=== PATIENT | male | born 1960 | race Caucasian/White ===

== ENCOUNTER → 2016-08-07 | Outpatient (CLI) | payer OTHER, BC ==
[~2016-08-07] MED LIST: HYDR-3419 PO; KETO10TA PO; MELO15TA4 PO; OXYC-57 PO
--- NOTE | 2016-08-07 08:12 | DIAGNOSTIC IMAGING REPORT ---
MRI left shoulder LEFT UPPER EXT JOINT WITHOUT CLINICAL HISTORY: ROTATOR CUFF TEAR OF LEFT SHOULDER TECHNIQUE: Multiaxial MRI acquisition COMPARISON STUDY: None FINDINGS: Hill-Sachs type deformity posterior lateral aspect humeral head. Degenerative change glenohumeral joint. Full-thickness tear supraspinatus musculotendinous junction with moderate musculotendinous retraction. Hypertrophic change acromioclavicular joint creating a mild degree of impingement. Subscapularis tendon appears to show moderate thinning but appears to be intact. The infraspinatus tendon is intact. Structures the glenoid labrum show evidence for degenerative substance change of the anterior and to lesser extent posterior labrum. There has-been a tear of the anterior superior margin of the labrum. The subscapularis and infraspinatus components of the rotator cuff appear to be intact. IMPRESSION: 1. Tear supraspinatus tendon. 2. Hill-Sachs type deformity posterior lateral aspect humeral head. 3. Focal tear anterior superior glenoid labrum Electronically signed by: Dakota Friend M.D. 08/07/2016 8:11 AM Dictated Date/Time: 08/07/2016 7:47 AM
== END | disposition home or self-care (01) ==
PROVIDERS: ATTEND Orthopaedic Surgery
DX: M75.102 Unspecified rotator cuff tear or rupture of left shoulder, not specified as traumatic (principal)

== ENCOUNTER → 2016-09-04 | Outpatient (CLI) | payer BC, OTHER ==
[2016-09-04 19:01] LABS: ALT/SGPT 75 U/L (12-78); AST/SGOT 33 U/L (15-37); BLOOD UREA NITROGEN 13 mg/dl (7-18); BUN/CREATININE RATIO 11.8 (10-20); CALCIUM 8.9 mg/dl (8.5-10.1); CARBON DIOXIDE 26 mmol/L (21-32); CHLORIDE 108 mmol/L (98-107); GLUCOSE 88 mg/dl (70-99); POTASSIUM 3.9 mmol/L (3.5-5.1); SODIUM 142 mmol/L (136-145)
[2016-09-04 19:03] LABS: ALKALINE PHOSPHATASE 129 U/L (45-117)
== END | disposition home or self-care (01) ==
LOC: C.LABBFT 11:20
PROVIDERS: ATTEND Internal Medicine
DX: K76.0 Fatty (change of) liver, not elsewhere classified (principal)

== ENCOUNTER → 2016-09-07 | Day surgery (SDC) | payer OTHER, BC ==
[2016-08-24 14:45] VITALS: Ht 185.4 cm; Wt 109.1 kg
[2016-08-24 15:48] LABS: BASO % 1.3 %; BASO ABS # 0.06 K/uL (0-0.2); COMPLETE YES; EOS % 3.8 %; HEMATOCRIT 47.6 % (42-52); IG% 0.8 %; LYMPH % 30.4 %; LYMPH ABS # 1.44 K/uL (1.2-3.4); MEAN CELL VOLUME 84.4 fL (80-100); MEAN CORPUSCULAR HEMOGLOBIN 29.4 pg (25-34); MEAN CORPUSCULAR HGB CONC 34.9 g/dl (32-36); MEAN PLATELET VOLUME 10.2 fL (7.4-10.4); NEUT % 45.7 %; PLATELET COUNT 206 K/uL (130-400); RED BLOOD COUNT 5.64 M/uL (4.7-6.1); WHITE BLOOD COUNT 4.73 K/uL (4.8-10.8)
[~2016-09-07] VITALS: Ht 185.4 cm; Wt 109.1 kg
[~2016-09-07] MED LIST changes: +ATROPINE SULFATE 0.1 MG/ML 5ML SYR IV PRN; +BUPIVACAINE/EPINEPHRINE 0.25% 1:200,000 30 ML VIAL ONE; +CEFAZOLIN 2000 MG/60 ML D5W IV SCH; +DEXAMETHASONE SOD INJ 4 MG/ML VIAL ONE; +EpHEDrine SULFATE INJ 50 MG/ML AMP IV PRN; +EpINEphrine INJ 1MG/ML AMP 1 MG/ML AMP ONE; +FENTANYL CITRATE INJ 50 MCG/1 ML 2 ML VIAL IV PRN; +FENTANYL CITRATE INJ 50 MCG/1 ML 2 ML VIAL ONE; +FLUMAZENIL 0.1 MG/1 ML 10 ML VIAL IV PRN; +HYDROmorphone INJ 2 MG/ML SYR/VIAL IV PRN; +LABETALOL HCL IV 5 MG/ML 20ML IV ONE; +LABETALOL HCL IV 5 MG/ML 20ML IV PRN; +LACTATED RINGER'S 1000ML 1,000 ML IV SCH; +LIDOCAINE HCL 2% 2 ML VIAL (20MG/ML) ONE; +MEPERIDINE HCL 25 MG/ML CARP IV PRN; +MIDAZOLAM HCL 1 MG/ML 2ML VIAL ONE; +NALOXONE HCL 0.4 MG/1 ML VIAL/CARP IV PRN; +ONDANSETRON INJ 2 MG/ML 2 ML VIAL IV PRN; +ONDANSETRON INJ 2 MG/ML 2 ML VIAL ONE; +OXYCODONE/ACETAMINOPHEN 5-325 TAB PO PRN; +PHENYLEPHRINE 100MCG/ML 5ML SYR IV PRN; +PROPOFOL IV EMULSION 10 MG/ML 20 ML VIAL IV ONE; +ROPIVACAINE 0.5% 5 MG/ML 30 ML VIAL ONE; +SODIUM CHLORIDE 0.9% 1000ML 1,000 ML IV SCH
--- NOTE | 2016-09-07 07:03 | History & Physical Bridge - [place] ---
H&P Re-Evaluation Bridge Note: I have examined the patient, reviewed the History & Physical and in the interval since the performance of the History & Physical I have noted the following changes of clinical significance: No changes noted
--- NOTE | 2016-09-07 10:04 | Discharge Instructions-SurgCtr ---
Discharge Instructions Date of Service Sep 07, 2016. Visit Reason for Visit: Left Shoulder Full Thickness Rotator Cuff Tear Discharge Discharge Diagnosis / Problem: SAME ABOVE Discharge Goals Goal(s): Decrease discomfort, Improve function Activity Recommendations Activity Limitations: as noted below Lifting Limitations: until after follow-up appointment Exercise/Sports Limitations: until after follow-up appointment Shower/Bathe: may shower/bathe in 3 days Anesthesia . Post Anesthesia Instructions: If you have had General Anesthesia or IV Sedation: * Do not drive today. * Resume driving when surgeon permits. * Do not make important decisions or sign legal documents today. * Call surgeon for: 1. Temperature elevations greater than 101 degrees F. 2. Uncontrollable pain. 3. Excessive bleeding. 4. Persistent nausea and vomiting. 5. Medication intolerance (nausea, vomiting or rash). * For nausea and vomiting use only clear liquids such as: tea, soda, bouillon until nausea subsides, then gradually increase diet as tolerated. * If you have any concerns or questions, call your surgeon's office. If physician is unavailable and it is an emergency, call 911 or go to the nearest emergency room. . Instructions / Follow-Up Instructions / Follow-Up MEDICATIONS: * Resume previous medications unless instructed otherwise by your surgeon. * Always take pain medication on a full stomach or with food to avoid upset stomach. * Do not drink alcohol or drive while taking narcotics. * Ibuprofen or Tylenol may be taken if narcotic not needed. SPECIAL CARE INSTRUCTIONS: __ None _X_ Keep extremity elevated and iced x 48 hours; apply ice 20-30 minutes 8-10 times/day. May remove at night. __ Sling __24 hrs/day __ Remove at night _X_ Shoulder Immobilizer (MAY REMOVE AFTER 48 HOURS ONLY FOR THERAPY AND TO SHOWER) _X_ 24 hrs/day __ Remove at night _X_ Dressing __ Maintain until seen in office, may shower with plastic over site _X_ Remove dressings in 24-48 hours and then may shower _X_ Cover incisions with band-aids after showering __ Do not remove steri-strips Call physician if chills or temperature rises above 102 degrees or pain unrelieved by prescribed pain medications at . . Diet Recommendations Home Diet: no limitations Fluid Restriction: None Procedures Procedures Performed: Left Shoulder Arthroscopy, Medium Rotator Cuff Repair, Arthroscopic Biceps Tenodesis, Acromioplasty Pending Studies Studies pending at discharge: no Work Instructions Return To Work: after follow-up Lifting Limitations: NO LIFTING WITH LEFT ARM Medical Emergencies . Who to Call and When: Medical Emergencies: If at any time you feel your situation is an emergency, please call 911 immediately. . Non-Emergent Contact Non-Emergency issues call your: Primary Care Provider Call Non-Emergent contact if: you have a fever, temperature is above 101.5 . . "Provider Documentation" section prepared by Reginaldo Bello.
--- NOTE | 2016-09-07 10:21 | Anesthesia Progress Nt - [facility] ---
Anesthesia Post Op Note Date & Time Sep 07, 2016 at 10:21 Vital Signs Pain Intensity: 0 Vital Signs Past 12 Hours Date Time Temp Pulse Resp B/P Pulse Ox O2 Delivery O2 Flow Rate FiO2 09/07/16 09:43 36.5 71 16 97/63 93 Mask 6 09/07/16 07:52 88 22 95 09/07/16 07:52 88 09/07/16 07:51 172/123 09/07/16 07:48 91 09/07/16 07:48 89 29 95 09/07/16 07:47 85 32 95 09/07/16 07:47 85 09/07/16 07:46 160/112 09/07/16 07:42 87 09/07/16 07:42 87 22 96 09/07/16 07:41 167/101 09/07/16 07:37 86 24 96 09/07/16 07:37 87 09/07/16 07:36 178/116 09/07/16 07:32 88 09/07/16 07:32 88 29 97 09/07/16 07:31 172/110 09/07/16 07:29 87 09/07/16 07:29 88 22 96 09/07/16 07:26 158/110 09/07/16 07:24 88 09/07/16 07:24 88 20 95 09/07/16 07:21 162/106 09/07/16 07:19 85 21 95 09/07/16 07:19 86 09/07/16 07:17 161/120 09/07/16 07:14 81 09/07/16 07:14 81 20 98 09/07/16 07:11 155/111 09/07/16 07:09 0 09/07/16 07:02 153/102 09/07/16 06:32 37.0 88 20 156/101 94 Room Air 153/102 Notes Mental Status: alert / awake / arousable, participated in evaluation Pt Amnestic to Procedure: Yes Nausea / Vomiting: adequately controlled Pain: adequately controlled Airway Patency, RR, SpO2: stable & adequate BP & HR: stable & adequate Hydration State: stable & adequate Anesthetic Complications: no major complications apparent
[2016-09-07 10:45] VITALS: TEMP 36.5
[2016-09-07 11:07] VITALS: BP 156/96; PULSE 81; O2SAT 95
--- NOTE | 2016-09-07 12:26 | [facility] Post Operative Brief Note ---
Immediate Operative Summary Operative Date Sep 07, 2016. Pre-Operative Diagnosis Left Shoulder Full Thickness Rotator Cuff Tear Post-Operative Diagnosis Same Procedure(s) Performed Left Shoulder Arthroscopy, Medium Rotator Cuff Repair, Arthroscopic Biceps Tenodesis, Acromioplasty Surgeon Dr. Pike [employer] Switch Technician Surgeon(s) Juan Ramon Bello PA-C Estimated Blood Loss 5 ml Findings as above Specimens None Complication(s) None Disposition Recovery Room / PACU
--- NOTE | 2016-09-07 12:33 | OPERATIVE REPORT ---
DATE OF OPERATION: 09/07/2016 PREOPERATIVE DIAGNOSIS: Traumatic medium-sized rotator cuff tear of the left shoulder. POSTOPERATIVE DIAGNOSIS: Same. PROCEDURES: Left shoulder diagnostic arthroscopy with extensive debridement, acromioplasty, traumatic medium-sized rotator cuff repair and arthroscopic biceps tenodesis. SURGEON: Dr. Elliott Pike. APPRAISER IRRIGATION TAX: Abelardo Bello PA-C, whose assistance was necessary for positioning the arm and helping with instrumentation. ANESTHESIA: General with a left interscalene nerve block. COMPLICATIONS: None. CONDITION: Stable to PACU. INDICATIONS: Basilio is a pleasant 56-year-old male who fell at work several months ago. He had significant pain and weakness of his left shoulder. MRI and clinical examination were diagnostic for acute traumatic rotator cuff tear. After failing conservative treatment, he elected to undergo arthroscopy. DESCRIPTION OF PROCEDURE: On 09/07/2014, he arrived at [facility] for the above procedure. He was seen in the preoperative holding and the operative extremity was identified and signed. He was given the previous antibiotic and a left interscalene nerve block. He was taken back to the operating room, laid on the table in supine position and put under general anesthesia. He was then put into the beachchair position. The left shoulder was prepped and draped in sterile fashion. Time-out was done and the patient and operative extremity was properly identified. A scope was introduced into the posterior portal. Diagnostic arthroscopy showed no cartilage damage to the humeral head or the glenoid. There was some fraying of the anterior and superior labrum. The biceps tendon was intact, but it was frayed on the anterior aspect. The subscapularis was intact. There was a tear involving the entire supraspinatus that extended up the rotator interval. The infraspinatus and teres minor were intact. An anterior portal was made. A shaver was used to start debridement of the intraarticular structures and the biceps tendon was arthroscopically tenotomized. The scope was then put into the subacromial space. A lateral portal was made. A shaver was used to do a complete subacromial and subdeltoid bursectomy. An ablator was used to tease the coracoacromial ligament off the undersurface of the acromion and a 5-0 antolin was used to complete an acromioplasty of a Bigliani type 2 acromion. A shaver was used to remove any excess debris and attention was turned to the rotator cuff. An additional anterolateral portal was made and Arlin cannulas were placed in each of the lateral portals. The tuberosity was prepared with a ring curette and a microfracture. The rotator cuff was then fixed with an Arthrex SpeedBridge configuration using 4.75 mm BioComposite SwiveLock suture anchors and FiberTape. This gave a very nice fixation. An additional FiberLink was placed anteriorly at the anterior corner of the supraspinatus. The FiberLink was also placed around the biceps tendon. The sutures were then brought down to a SwiveLock suture anchor, placed in the bicipital groove. This gave an arthroscopic biceps tenodesis as well as a nice anchor point for the anterior edge of the supraspinatus. Multiple pictures were taken. The scope was placed back into the glenohumeral joint and the articular margin of the rotator cuff had been restored. Pictures were taken. Arthroscopic instruments were removed from the shoulder. Portal sites were closed with 3-0 nylon. He was then placed in a soft dressing and an abduction arm sling. He was then extubated, transferred to a litter and taken to the postanesthesia care unit in stable condition. He tolerated the procedure well. I attest to the content of the Intraoperative Record and any orders documented therein. Any exceptio ns are noted below.
== END | disposition home or self-care (01) ==
LOC: X.SURG 06:23
PROVIDERS: ATTEND Orthopaedic Surgery
DX: S46.012A Strain of muscle(s) and tendon(s) of the rotator cuff of left shoulder, initial encounter (principal); W19.XXXA Unspecified fall, initial encounter; Y99.0 Civilian activity done for income or pay; Z90.49 Acquired absence of other specified parts of digestive tract

== ENCOUNTER 2022-09-08 13:33 | Observation (INO) ==
--- NOTE | 2022-09-08 14:17 | CT Scan Report ---
CT head/brain wo con CLINICAL HISTORY: 62 years-old Male with Neuro deficit, acute, stroke suspected. Acute stroke like s [place] TECHNIQUE: Multiple axial CT images of the head were obtained without contrast. A dose lowering tech nique was utilized adhering to the principles of ALARA. CT DOSE: 614.27 mGy.cm COMPARISON: None. FINDINGS: No acute intracranial hemorrhage, midline shift, intracranial mass, hydrocephalus, territorial ischem ia or abnormal extra-axial collection. Mild involutional changes with suggestion of mild chronic micr ovascular ischemic disease. Senescent calcifications of the basal ganglia. The calvarium is intact. The paranasal sinuses, mastoid air cells, and middle ear cavities are clear . IMPRESSION: No acute intracranial abnormality identified. ACT 112: Negative or not required by law. The above report was generated using voice recognition software. It may contain grammatical, syntax o r spelling errors. Electronically signed by: Wallace Rayo M.D. 09/08/2022 2:16 PM
[2022-09-08 14:32] LABS: Hematocrit (blood only) 50.6 % (42.0-52.0); Hemoglobin 16.9 g/dl (14.0-18.0); Mean Corpuscular Hemoglobin 29.1 pg (25.0-34.0); Mean Corpuscular Hgb Conc 33.4 g/dL (32.0-36.0); Mean Corpuscular Volume 87.1 fL (80.0-100.0); Mean Platelet Volume 9.5 fL (9.4-12.4); Platelet Count 213 K/uL (130-400); RDW Coefficient of Variation 13.5 % (11.5-14.5); RDW Standard Deviation 42.6 fL (36.4-46.3); Red Blood Count 5.81 M/uL (4.70-6.10); White Blood Count 4.52 K/ul (4.8-10.8)
[2022-09-08 14:57] LABS: Partial Thromboplastin Time 27.6 Seconds (21.0-31.0); Prothrombin Time 10.7 Seconds (9.0-12.0)
[2022-09-08 14:59] LABS: Alanine Aminotransferase 24 U/L (7-52); Albumin Globulin Ratio 1.4 (0.9-2); Albumin Level 4.9 gm/dl (3.4-5.0); Alkaline Phosphatase 114 U/L (34-104); Anion Gap 5 (3-11); Aspartate Aminotransferase 26 U/L (13-39); Bilirubin,Total 0.8 mg/dl (0.2-1.0); Blood Urea Nitrogen 17 mg/dl (6-23); Calcium 9.9 mg/dl (8.5-10.1); Carbon Dioxide 29 mmol/L (21-32); Chloride 105 mmol/L (98-107); Creatinine Clr Calc Pharmacy 83.6 ml/min; Est GFR (African American) 79.7 ml/min; Est GFR (Non-African American) 68.8 ml/min; Globulin 3.4 gm/dl (2.5-4.0); Glucose 96 mg/dl (70-99(Fasting)); Magnesium 2.3 mg/dl (1.7-2.4); Potassium 4.3 mmol/L (3.5-5.1); Sodium 139 mmol/L (136-145); Total Protein 8.3 gm/dl (6.0-8.3)
[2022-09-08] MEDS ORDERED: LABETALOL HCL IV 5 MG/ML 20ML IV STA ×2 (16:20→18:51)
[2022-09-08] MEDS ORDERED: LOSARTAN POTASSIUM 50 MG TAB PO STA (16:22)
--- NOTE | 2022-09-08 16:32 | Emergency Department Note ---
Impression & Plan Visual disturbance, Hypertension, Stroke-like symptoms ED Provider Note NAME: LU BENNETT AGE: 62 SEX: M : 1960 ARRIVES VIA: Walk-In INFORMANT: [Patient] ED PROVIDER(S): [Nishant Agosto MD] CHIEF COMPLAINT: Lost vision HISTORY OF PRESENT ILLNESS: The patient is a 62-year-old male states that 4 hours ago, his left eye vision turned yellow, pale, saunders and then black. He could not see anything for about 1 minute. His vision then returned. He had a very mild headache in the area of the left eye, no vomiting or nausea. No one-sided weakness, no chest pain or shortness of breath. Lately, the patient's blood pressure has been higher. He is on 2 different medications for blood pressure. He was referred to the ER by his doctors office for the possibility of a small stroke. PMHx/PSHx: See Below SOCIAL HISTORY: See Below. PHYSICAL EXAM: GENERAL: Patient is in no acute distress. HEENT: No acute trauma, normocephalic atraumatic, mucous membranes moist, no nasal congestion. Pupils equal and reactive to light. NECK: No stridor, no adenopathy, no meningismus, trachea is midline. LUNGS: Clear to auscultation bilaterally, no wheeze, no rhonchi, breath sounds equal. HEART: Without murmurs gallops or rubs, regular rate and rhythm. ABDOMEN: Soft, nontender, bowel sounds positive, no peritonitis. EXTREMITIES: No cyanosis or edema, full range of motion of all the joints without pain or difficulty, no signs for acute trauma. NEUROLOGIC: Oriented x 3, no acute motor or sensory deficits, no focal weakness. Excellent historian, no extremity drift or cerebellar dysfunction. No facial droop or speech slur. SKIN: No rash, no jaundice, no diaphoresis. DIFFERENTIAL DIAGNOSIS: Uncontrolled hypertension, stroke, retinal detachment, electrolyte imbalance, renal failure, intracranial bleeding, among others. EMERGENCY DEPARTMENT COURSE/PROCEDURES: Prior/Outside records reviewed: None. ECG per my interpretation: Indication was possible stroke. The ECG shows a sinus rhythm with a PAC. The rate is 79. There is a potential old septal infarct. There is no ST elevation, no PVCs. The QTc is 421. Continuous Cardiac Monitoring per my interpretation: An order was placed for continuous cardiac monitoring. The monitor shows a rate of 72 with normal sinus rhythm. Critical Care Note: I have personally spent 41 minutes of critical care time in the direct management of this patient. This includes bedside care, interpretation of diagnostic studies, and testing, discussion with consultants, patient, and family members, and other required patient management activities. This 41 minutes is in excess of all separately billable procedures. MEDICAL DECISION MAKING: There is no leukocytosis or concerning anemia. There is a normal platelet count. No coagulopathy. No renal failure or significant electrolyte abnormality, no concerning liver enzyme elevation. COVID test returned negative. ECG showed a normal sinus rhythm, no obvious ischemia. Brain MRI did not show any acute stroke. Chest film per my review did not show mediastinal widening, pneumonia or pneumothorax. Brain CT showed no acute bleed or mass effect. On exam, patient's vision had returned to normal, there were no focal neurologic findings. He was hypertensive. Patient was given 50 mg of oral losartan. He received 10 mg of IV labetalol and then a second dose of 10 mg of IV labetalol. He was given oral aspirin. The patient was reassured by his negative imaging. I did speak with ophthalmology, Dr. Gamble. Basically, the patient should be treated as if this were a TIA. I was able to have our techs perform a retinal scan. This image has been sent to the [facility] for ophthalmology to review. I spoke with the patient, I did speak with case management as well as the on- call hospitalist--given the need for a stroke work-up, hospitalization is indicated. The patient's blood pressure has improved, he is currently resting comfortably and is without complaints. DISPOSITION: Patient presentation and findings warrant a hospital stay. Past Med/Surg History Medical History Asthma exercise induced--no inhalers Degeneration, intervertebral disc, thoracic Fatty liver Hearing loss in right ear History of colon polyps Hypertension Mass of right forearm Ocular migraine hx Palpitations holter monitor study done within last year. ordered by pcp ([facility]). no community mental health social worker. Plantar warts Sebaceous cyst of left axilla Surgical History H/O excision of mass (07/18/22) Left Axilla Soft Tissue Mass Excision and Rigth Forearm Soft Tissue Mass Excision(Bilateral) - Gerardo Rowe, DO, FACS History of appendectomy History of carpal tunnel release of both wrists History of colonoscopy History of repair of left rotator cuff History of tonsillectomy History of tooth extraction Family History (Updated 09/08/22 @ 22:06 by Apolinar Velasquez MD) Sister Family history of diabetes mellitus 2 Mother Family hx of colon cancer Hypertension Atrial fibrillation Aunt Breast cancer Other No family history of adverse response to anesthesia Denies family history of Ovarian cancer Prostate cancer Myocardial infarction Colorectal cancer Social History Smoking Status: Never smoker Tobacco Type: Cigars Cigarettes Per Day: 1-2 x mo; Second Hand Exposure: No; Hx Alcohol Use: Yes Alcohol type: beer and hard liquor Hx Substance Use: No Preferred Language: Burmese Communication Ability: Effective Repossession Agent Required: No Beliefs That Will Affect Care: None marital status: Current Living Situation: Spouse current occupational status: employed How many Children do You have: 2 Feels Safe at Home: Yes caffeine: Yes Dental Care, Regularly: Yes Physical Activity Frequency: Does not Exercise Assistive Devices: Glasses Allergies Allergies Allergy/AdvReac Type Severity Reaction Status Date / Time amoxicillin Allergy Severe Hives Verified 09/08/22 17:53 Penicillins Allergy Severe THROAT Verified 09/08/22 17:53 TIGHTENED, ITCHY HIVES FABRICIO Inhibitors AdvReac Intermediate Cough Verified 09/08/22 17:53 Home Meds Home Medications Medication Instructions Recorded Confirmed losartan 50 mg tablet 50 mg PO QAM 07/11/22 09/08/22 [id number] acid 300 1 tab PO QAM 07/11/22 09/08/22 mcg-lycopene 600 mcg-lutein 300 mcg tablet (Centrum Silver Men) verapamil 240 mg 24 hr 240 mg PO QAM 07/11/22 09/08/22 capsule,extended release Previous Rx's Medication Instructions Recorded sildenafil (pulm.hypertension) 20 See Rx Instructions PO DAILY PRN 06/01/22 mg tablet sexual activity #30 tabs Results & Data (ED) Vital Signs Vital Signs - 24 hr 09/08/22 13:46 09/08/22 15:30 09/08/22 18:02 Temperature 36.6 C Temperature Source Temporal Artery Scan Pulse Rate 83 72 Pulse Rate [Apical] 58 L Pulse Rate from SpO2 Sensor Respiratory Rate 18 20 18 Blood Pressure 213/115 H Blood Pressure [Right Arm] 170/95 H Blood Pressure Mean 147 Blood Pressure Mean [Right Arm] 120 Blood Pressure Position [Right Arm] Sitting Pulse Oximetry 98 98 97 Oxygen Delivery Method Room Air Room Air Room Air Oxygen Flow Rate Sepsis Recent Fever Within 48 Hours No Sepsis New/Unexplained Change in Mental Status No Sepsis Action Taken by Nursing No Action Required 09/08/22 18:06 09/08/22 16:51 09/08/22 16:53 Temperature Temperature Source Pulse Rate 70 70 Pulse Rate [Apical] Pulse Rate from SpO2 Sensor Respiratory Rate 17 18 Blood Pressure 168/114 H 159/109 H Blood Pressure [Right Arm] Blood Pressure Mean 132 125 Blood Pressure Mean [Right Arm] Blood Pressure Position [Right Arm] Pulse Oximetry 97 97 97 Oxygen Delivery Method Room Air Room Air Room Air Oxygen Flow Rate 0 Sepsis Recent Fever Within 48 Hours Sepsis New/Unexplained Change in Mental Status Sepsis Action Taken by Nursing 09/08/22 18:02 09/08/22 18:30 09/08/22 19:07 Temperature Temperature Source Pulse Rate 69 62 68 Pulse Rate [Apical] Pulse Rate from SpO2 Sensor 70 Respiratory Rate 18 18 20 Blood Pressure 170/95 H 155/103 H 167/97 H Blood Pressure [Right Arm] Blood Pressure Mean 120 120 120 Blood Pressure Mean [Right Arm] Blood Pressure Position [Right Arm] Pulse Oximetry 96 98 96 Oxygen Delivery Method Room Air Room Air Room Air Oxygen Flow Rate Sepsis Recent Fever Within 48 Hours Sepsis New/Unexplained Change in Mental Status Sepsis Action Taken by Nursing 09/08/22 19:13 09/08/22 19:30 09/08/22 20:30 Temperature Temperature Source Pulse Rate 73 60 59 L Pulse Rate [Apical] Pulse Rate from SpO2 Sensor 70 Respiratory Rate 18 18 18 Blood Pressure 156/97 H 139/96 138/88 Blood Pressure [Right Arm] Blood Pressure Mean 116 110 104 Blood Pressure Mean [Right Arm] Blood Pressure Position [Right Arm] Pulse Oximetry 96 96 94 Oxygen Delivery Method Room Air Room Air Room Air Oxygen Flow Rate Sepsis Recent Fever Within 48 Hours Sepsis New/Unexplained Change in Mental Status Sepsis Action Taken by Nursing 09/08/22 21:00 09/08/22 21:41 09/08/22 22:30 Temperature Temperature Source Pulse Rate 62 70 64 Pulse Rate [Apical] Pulse Rate from SpO2 Sensor 68 Respiratory Rate 16 19 17 Blood Pressure 145/88 H 139/88 142/85 H Blood Pressure [Right Arm] Blood Pressure Mean 107 105 104 Blood Pressure Mean [Right Arm] Blood Pressure Position [Right Arm] Pulse Oximetry 96 94 94 Oxygen Delivery Method Room Air Room Air Room Air Oxygen Flow Rate Sepsis Recent Fever Within 48 Hours Sepsis New/Unexplained Change in Mental Status Sepsis Action Taken by Longterm Medications Current Medication List: was personally reviewed by me Laboratory Data Attestation: I reviewed the patient's lab results. 09/08/22 14:02 09/08/22 14:02 Lab Results 09/08/22 09/08/22 09/08/22 Range/Units 14:02 14:02 14:02 WBC 4.52 L (4.8-10.8) K/ul RBC 5.81 (4.70-6.10) M/uL Hgb 16.9 (14.0-18.0) g/dl Hct 50.6 (42.0-52.0) % MCV 87.1 (80.0-100.0) fL MCH 29.1 (25.0-34.0) pg MCHC 33.4 (32.0-36.0) g/dL RDW Std Deviation 42.6 (36.4-46.3) fL RDW Coeff of Nayan 13.5 (11.5-14.5) % Plt Count 213 (130-400) K/uL MPV 9.5 (9.4-12.4) fL PT 10.7 (9.0-12.0) Seconds INR 1.0 (0.9-1.1) APTT 27.6 (21.0-31.0) Seconds PTT Ratio 1.0 Sodium 139 (136-145) mmol/L Potassium 4.3 (3.5-5.1) mmol/L Chloride 105 (98-107) mmol/L Carbon Dioxide 29 (21-32) mmol/L Anion Gap 5 (3-11) BUN 17 (6-23) mg/dl Creatinine 1.13 (0.6-1.4) mg/dl Est Cr Clr Drug Dosing 83.6 ml/min Est GFR ( Amer) 79.7 ml/min Est GFR (Non-Af Amer) 68.8 ml/min BUN/Creatinine Ratio 15.0 (10-20) Glucose 96 (70-99(Fasting)) mg/dl Calcium 9.9 (8.5-10.1) mg/dl Magnesium 2.3 (1.7-2.4) mg/dl Total Bilirubin 0.8 (0.2-1.0) mg/dl AST 26 (13-39) U/L ALT 24 (7-52) U/L Alkaline Phosphatase 114 H (34-104) U/L Total Protein 8.3 (6.0-8.3) gm/dl Albumin 4.9 (3.4-5.0) gm/dl Globulin 3.4 (2.5-4.0) gm/dl Albumin/Globulin Ratio 1.4 (0.9-2) SARS-CoV-2, RNA, NAAT (NEGATIVE) 09/08/22 Range/Units 19:28 WBC (4.8-10.8) K/ul RBC (4.70-6.10) M/uL Hgb (14.0-18.0) g/dl Hct (42.0-52.0) % MCV (80.0-100.0) fL MCH (25.0-34.0) pg MCHC (32.0-36.0) g/dL RDW Std Deviation (36.4-46.3) fL RDW Coeff of Nayan (11.5-14.5) % Plt Count (130-400) K/uL MPV (9.4-12.4) fL PT (9.0-12.0) Seconds INR (0.9-1.1) APTT (21.0-31.0) Seconds PTT Ratio Sodium (136-145) mmol/L Potassium (3.5-5.1) mmol/L Chloride (98-107) mmol/L Carbon Dioxide (21-32) mmol/L Anion Gap (3-11) BUN (6-23) mg/dl Creatinine (0.6-1.4) mg/dl Est Cr Clr Drug Dosing ml/min Est GFR ( Amer) ml/min Est GFR (Non-Af Amer) ml/min BUN/Creatinine Ratio (10-20) Glucose (70-99(Fasting)) mg/dl Calcium (8.5-10.1) mg/dl Magnesium (1.7-2.4) mg/dl Total Bilirubin (0.2-1.0) mg/dl AST (13-39) U/L ALT (7-52) U/L Alkaline Phosphatase (34-104) U/L Total Protein (6.0-8.3) gm/dl Albumin (3.4-5.0) gm/dl Globulin (2.5-4.0) gm/dl Albumin/Globulin Ratio (0.9-2) SARS-CoV-2, RNA, NAAT NEGATIVE (NEGATIVE) Administered Medications Discontinued Medications Aspirin (Aspirin Chew 324 Mg) 324 mg PO NOW STA Stop: 09/08/22 18:53 Last Admin: 09/08/22 19:05 Dose: 324 mg Documented By: QGV Labetalol HCl (Labetalol Hcl Iv 5 Mg/Ml 20ml) 10 mg IV NOW STA Stop: 09/08/22 16:21 Last Admin: 09/08/22 16:49 Dose: 10 mg Documented By: QGV Co-signed By: AVANI Labetalol HCl (Labetalol Hcl Iv 5 Mg/Ml 20ml) 10 mg IV NOW STA Stop: 09/08/22 18:52 Last Admin: 09/08/22 19:04 Dose: 10 mg Documented By: QGV Co-signed By: LEBRON Losartan Potassium (Losartan Potassium 50 Mg Tab) 50 mg PO NOW STA Stop: 09/08/22 16:23 Last Admin: 09/08/22 16:59 Dose: 50 mg Documented By: QGV Imaging Data Radiologist's Impression: Chest X-Ray 09/08/22 13:50 XR chest 1V not portable HISTORY: stroke symptoms COMPARISON: Chest 07/10/2022. FINDINGS: No pneumothorax. No pleural effusions. The lungs are clear. The heart remains top normal in size. No evidence for pulmonary edema. 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 IMPRESSION: No significant change compared to the prior study. No acute process. ACT 112: Negative or not required by law. Electronically signed by: Mayank Wheatley M.D. 09/08/2022 4:[address] 09/08/22 13:50 CT head/brain wo con CLINICAL HISTORY: 62 years-old Male with Neuro deficit, acute, stroke suspected. Acute stroke like s[place] TECHNIQUE: Multiple axial CT images of the head were obtained without contrast. A dose lowering technique was utilized adhering to the principles of ALARA. CT DOSE: 614.27 mGy.cm COMPARISON: None. FINDINGS: No acute intracranial hemorrhage, midline shift, intracranial mass, hydrocephalus, territorial ischemia or abnormal extra-axial collection. Mild involutional changes with suggestion of mild chronic microvascular ischemic disease. Senescent calcifications of the basal ganglia. The calvarium is intact. The paranasal sinuses, mastoid air cells, and middle ear cavities are clear. IMPRESSION: No acute intracranial abnormality identified. ACT 112: Negative or not required by law. The above report was generated using voice recognition software. It may contain grammatical, syntax or spelling errors. Electronically signed by: Wallace Rayo M.D. 09/08/2022 2:16 PM Brain MRI 09/08/22 16:20 Brain MRI WITHOUT CONTRAST HISTORY: lost right eye vision poss stroke TECHNIQUE: Multiplanar multisequence MRI of the brain was performed without the use of contrast. COMPARISON STUDY: None. FINDINGS: There is no mass, hematoma, midline shift, or acute infarct. The paranasal sinuses are clear. The mastoid air cells are clear. The ventricles and sulci demonstrate mild age-related involutional changes. A few scattered punctate foci of T2 hyperintensity seen within the periventricular and subcortical white matter are nonspecific but suggestive of mild microvascular ischemic changes. The major vascular flow voids at the skull base are well- maintained. The globes and retrobulbar fat are intact. The optic nerves demonstrate a normal signal intensity. There is a 9 mm cystic focus near the left petrous apex/sphenoid sinus which could represent mucoid material within the left sphenoid sinus or a cholesterol cyst. This is best seen on axial image 9. IMPRESSION: 1. No acute infarct or intracranial hemorrhage. 2. Mild atrophy and presumed mild microvascular ischemic changes. 3. There is a 9 mm cystic focus near the left petrous apex/sphenoid sinus which could represent mucoid material within the left sphenoid sinus or a cholesterol cyst. This is of doubtful clinical significance. ACT 112: Negative or not required by law. Electronically signed by: Mayank Wheatley M.D. 09/08/2022 5:41 PM Discharge Plan Visit Data Chief Complaint: Eye Problems Stated Complaint: L EYE VISION PROBLEM,?RETINAL STROKE ED Provider: Feese,Nishant J Discharge Problem: Visual disturbance, Hypertension, Stroke-like symptoms Patient Disposition: Admitted As Inpatient Condition: Good Forms Stand Alone Forms: My [facility] [employer] Prescriptions Prescriptions: No Action sildenafil (pulm.hypertension) 20 mg tablet See Rx Instructions PO DAILY PRN (Reason: sexual activity) Qty: 30 0RF Rx Instructions: 2 to 3 tabs PO daily PRN; losartan 50 mg tablet 50 mg PO QAM verapamil 240 mg capsule,ext rel. pellets 24 hr 240 mg PO QAM Centrum Silver Men 300-600-300 mcg Tablet 1 tab PO QAM Referrals Referrals: Carrie Stephens MD [Primary Care Provider] -
--- NOTE | 2022-09-08 16:52 | XRay Report ---
XR chest 1V not portable HISTORY: stroke symptoms COMPARISON: Chest 07/10/2022. FINDINGS: No pneumothorax. No pleural effusions. The lungs are clear. The heart remains top normal in size. No evidence for pulmonary edema. 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 IMPRESSION: No significant change compared to the prior study. No acute process. ACT 112: Negative or not required by law. Electronically signed by: Mayank Wheatley M.D. 09/08/2022 4:51 PM
--- NOTE | 2022-09-08 17:43 | Magnetic Resonance Report ---
Brain MRI WITHOUT CONTRAST HISTORY: lost right eye vision poss stroke TECHNIQUE: Multiplanar multisequence MRI of the brain was performed without the use of contrast. COMPARISON STUDY: None. FINDINGS: There is no mass, hematoma, midline shift, or acute infarct. The paranasal sinuses are leeanna r. The mastoid air cells are clear. The ventricles and sulci demonstrate mild age-related involutiona l changes. A few scattered punctate foci of T2 hyperintensity seen within the periventricular and sub cortical white matter are nonspecific but suggestive of mild microvascular ischemic changes. The miguel r vascular flow voids at the skull base are well-maintained. The globes and retrobulbar fat are intac t. The optic nerves demonstrate a normal signal intensity. There is a 9 mm cystic focus near the left petrous apex/sphenoid sinus which could represent mucoid material within the left sphenoid sinus or a cholesterol cyst. This is best seen on axial image 9. IMPRESSION: 1. No acute infarct or intracranial hemorrhage. 2. Mild atrophy and presumed mild microvascular ischemic changes. 3. There is a 9 mm cystic focus near the left petrous apex/sphenoid sinus which could represent mucoi d material within the left sphenoid sinus or a cholesterol cyst. This is of doubtful clinical signifi cance. ACT 112: Negative or not required by law. Electronically signed by: Mayank Wheatley M.D. 09/08/2022 5:41 PM
[2022-09-08] MEDS ORDERED: ASPIRIN CHEW 324 MG PO STA (18:52)
--- NOTE | 2022-09-08 20:52 | History & Physical Report ---
Date of Service September 08, 2022 Assessment & Plan (1) Transient visual loss of left eye: Plan: 62 y/o male w/ PMHx of HTN, ocular migraines (per patient) w/ aura, and exercise-induced asthma who presents via EMS w/ transient vision loss in left eye x 1 minute Considered CRVO, CVAO, temporal arteritis, optic neuritis, amaurosis fugax, complicated migraine as the more likely etiologies. Also considered TIA/CVA. Patient w/o current symptoms and did not have focal neuro deficits other than eye complaint. Elevated BPs up to 200s unlikely to be the main contributor of his symptoms. Aspirin, statin. Check a1c and lipids. Check esr, crp Consult ophthalmology. Optomap retinal image of left eye pending. Per my interpretation, no gross abnormalities. MRI orbits w/ con not ordered, but can consider. Retinal scan performed in ED, pending ophthalmology read. CTA head/neck TTE q4 neuro checks Allow loose goal of 180 systolic BP as lower BPs may reduce perfusion if central retinal artery occlusion is considered (2) Hypertension: Plan: Continue chronic regimen of losartan 50mg and verapamil 240mg (also for palpitations 2/2 pacs/pvcs). (3) Asthma: Plan: Mild, exercise-induced. Not on inhalers. (4) Erectile dysfunction: Plan: Hold home prn sildenafil. Last used 1 month ago. (5) CKD (chronic kidney disease): Plan: Stage 2. Follow BMP. Plan HH diet. SCDs only. Full code. med tele History of Present Illness Chief Complaint: transient left vision loss Primary Care Provider: Carrie Stephens MD 62 y/o male w/ PMHx of HTN, ocular migraines (per patient) w/ aura, and exercise-induced asthma who presents via EMS w/ transient vision loss in left eye x 1 minute (started as opague/beige, then darker from saunders to black, 99% vision loss. no hx similar). Was walking down steps at home. Initially, thought was beginning of ocular migraine. BP 213/115->->139/96. Mild left periorbital headache. No cp, sob, n/v, or extremity weakness. For past 2 weeks, had sensation (feeling more anxious/stressed) of high BP, 165/98. No yi, blurry vision, n/v, cp, sob, paresthesias, jaw numbness. Denies facial droop, speech deficit, confusion, extremity weakness. States passed bedside swallow eval.. Had outpatient implantable event monitor w/ PACs and PVCs, no afib. Cigars 1x/month consistently in last 10 years. No cigarette use. rare etoh. No hx mi, stroke, VTE. No family hx migraines. Losartan 25mg was increased to 50mg a year ago. Verapamil 249mg chronically. Last used sildenafil a month. Mild malaise. Mild bilat methodist area tightness/YI since coming to ED. No ttp at temples. Works as construction cost estimator. Walks 1.5 mile daily. Lost 50 lbs in past 2 years intentionally via diet/exercise. Has hx of ocular migraines w/ aura. ED course: labetalol 10mg IV x2. ASA 324. losartan 50mg PO. ED physician spoke w/ ophthalmology Dr. Phillips who recommended stroke-type workup. mild leukopenia. cbc stable. coags wnl. Cr 1.13, baseline 1.0. ecg reviewed, no ischemic changes. Allergies Allergy/AdvReac Type Severity Reaction Status Date / Time amoxicillin Allergy Severe Hives Verified 09/08/22 17:53 Penicillins Allergy Severe THROAT Verified 09/08/22 17:53 TIGHTENED, ITCHY HIVES FABRICIO Inhibitors AdvReac Intermediate Cough Verified 09/08/22 17:53 Home Medications Medication Instructions Recorded Confirmed Type sildenafil (pulm.hypertension) 20 See Rx Instructions PO DAILY PRN 06/01/22 09/08/22 Rx mg tablet sexual activity #30 tabs losartan 50 mg tablet 50 mg PO QAM 07/11/22 09/08/22 History ojwqetis-mca-iocrq acid 300 1 tab PO QAM 07/11/22 09/08/22 History mcg-lycopene 600 mcg-lutein 300 mcg tablet (Centrum Silver Men) verapamil 240 mg 24 hr 240 mg PO QAM 07/11/22 09/08/22 History capsule,extended release aspirin 81 mg capsule 81 mg PO DAILY #30 caps 09/09/22 Rx atorvastatin 40 mg tablet 40 mg PO DAILY #30 tabs 09/09/22 Rx Past Med/Surg History Medical History Asthma exercise induced--no inhalers Degeneration, intervertebral disc, thoracic Fatty liver Hearing loss in right ear History of colon polyps Hypertension Mass of right forearm Ocular migraine hx Palpitations holter monitor study done within last year. ordered by pcp ([facility]). no portable machine cutter. Plantar warts Sebaceous cyst of left axilla Surgical History H/O excision of mass (07/18/22) Left Axilla Soft Tissue Mass Excision and Rigth Forearm Soft Tissue Mass Excision(Bilateral) - Gerardo Rowe DO, FACS History of appendectomy History of carpal tunnel release of both wrists History of colonoscopy History of repair of left rotator cuff History of tonsillectomy History of tooth extraction Family History (Updated 09/08/22 @ 22:06 by Apolinar Velasquez MD) Sister Family history of diabetes mellitus 2 Mother Family hx of colon cancer Hypertension Atrial fibrillation Aunt Breast cancer Other No family history of adverse response to anesthesia Denies family history of Ovarian cancer Prostate cancer Myocardial infarction Colorectal cancer Social History (Updated 09/09/22 @ 00:33 by Apolinar Velasquez MD) Smoking Status: Never smoker Tobacco Type: Cigars Cigarettes Per Day: 1/month; Second Hand Exposure: No; Hx Alcohol Use: Yes Alcohol type: beer and hard liquor Hx Substance Use: No Preferred Language: Georgian Communication Ability: Effective Alcohol Law Enforcement Agent Required: No Beliefs That Will Affect Care: None marital status: Current Living Situation: Spouse current occupational status: employed How many Children do You have: 2 Feels Safe at Home: Yes caffeine: Yes Dental Care, Regularly: Yes Physical Activity Frequency: Daily Assistive Devices: Glasses Review of Systems Review of Systems: All systems reviewed & are unremarkable except as noted in HPI & below Physical Exam Physical Exam: General: A&Ox4. NAD. Cooperative. HEENT: Atraumatic, normocephalic. EOMI. PERRL. No nystagmus. No relative afferent pupillary defect. Undilated funduscopic exam limited, but appears grossly same bilaterally. Pulm: CTAB. -wheezes, -rales, -rhonchi. No respiratory distress. Cardiac: RRR, -mrg. Radial pulses intact and symmetrical. No LE edema. Abdominal: Nontender, nondistended, soft. Neuro: normal. No dysmetria. CN II-XII intact. Normal strength and sensation of extrem. Results & Data Results & Data Vital Signs (Past 12 Hours) Vital Signs Temp Pulse Pulse Resp BP BP Pulse Ox 09/08/22 19:30 60 18 139/96 96 09/08/22 19:13 73 18 156/97 H 96 09/08/22 19:07 68 20 167/97 H 96 09/08/22 18:30 62 18 155/103 H 98 09/08/22 18:02 69 18 170/95 H 96 09/08/22 16:53 70 18 159/109 H 97 09/08/22 16:51 70 17 168/114 H 97 09/08/22 18:06 97 09/08/22 18:02 58 L 18 170/95 H 97 09/08/22 15:30 72 20 98 09/08/22 13:46 36.6 C 83 18 213/115 H 98 O2 Del Method O2 Flow Rate 09/08/22 19:30 Room Air 09/08/22 19:13 Room Air 09/08/22 19:07 Room Air 09/08/22 18:30 Room Air 09/08/22 18:02 Room Air 09/08/22 16:53 Room Air 09/08/22 16:51 Room Air 09/08/22 18:06 Room Air 0 09/08/22 18:02 Room Air 09/08/22 15:30 Room Air 09/08/22 13:46 Room Air Laboratory Results Cardiac Enzymes 09/08/22 Range/Units 14:02 AST 26 (13-39) U/L Coagulation 09/08/22 Range/Units 14:02 PT 10.7 (9.0-12.0) Seconds APTT 27.6 (21.0-31.0) Seconds CBC 09/08/22 Range/Units 14:02 WBC 4.52 L (4.8-10.8) K/ul RBC 5.81 (4.70-6.10) M/uL Hgb 16.9 (14.0-18.0) g/dl Hct 50.6 (42.0-52.0) % Plt Count 213 (130-400) K/uL Comprehensive Metabolic Panel 09/08/22 Range/Units 14:02 Sodium 139 (136-145) mmol/L Potassium 4.3 (3.5-5.1) mmol/L Chloride 105 (98-107) mmol/L Carbon Dioxide 29 (21-32) mmol/L BUN 17 (6-23) mg/dl Creatinine 1.13 (0.6-1.4) mg/dl Glucose 96 (70-99(Fasting)) mg/dl Calcium 9.9 (8.5-10.1) mg/dl AST 26 (13-39) U/L ALT 24 (7-52) U/L Alkaline Phosphatase 114 H (34-104) U/L Total Protein 8.3 (6.0-8.3) gm/dl Albumin 4.9 (3.4-5.0) gm/dl Intake and Output 09/08/22 09/08/22 09/08/22 06:59 14:59 22:59 Other: Weight 101 kg Weight Measurement Method Chair Scale Patient Weight 09/09/22 06:59 Weight 101 kg Diagnostic Findings Chest X-Ray 09/08/22 13:50 XR chest 1V not portable HISTORY: stroke symptoms COMPARISON: Chest 07/10/2022. FINDINGS: No pneumothorax. No pleural effusions. The lungs are clear. The heart remains top normal in size. No evidence for pulmonary edema. 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 IMPRESSION: No significant change compared to the prior study. No acute process. ACT 112: Negative or not required by law. Electronically signed by: Mayank Wheatley M.D. 09/08/2022 4:[address] 09/08/22 13:50 CT head/brain wo con CLINICAL HISTORY: 62 years-old Male with Neuro deficit, acute, stroke suspected. Acute stroke like s[place] TECHNIQUE: Multiple axial CT images of the head were obtained without contrast. A dose lowering technique was utilized adhering to the principles of ALARA. CT DOSE: 614.27 mGy.cm COMPARISON: None. FINDINGS: No acute intracranial hemorrhage, midline shift, intracranial mass, hydrocephalus, territorial ischemia or abnormal extra-axial collection. Mild involutional changes with suggestion of mild chronic microvascular ischemic disease. Senescent calcifications of the basal ganglia. The calvarium is intact. The paranasal sinuses, mastoid air cells, and middle ear cavities are clear. IMPRESSION: No acute intracranial abnormality identified. ACT 112: Negative or not required by law. The above report was generated using voice recognition software. It may contain grammatical, syntax or spelling errors. Electronically signed by: Wallace Rayo M.D. 09/08/2022 2:16 PM Brain MRI 09/08/22 16:20 Brain MRI WITHOUT CONTRAST HISTORY: lost right eye vision poss stroke TECHNIQUE: Multiplanar multisequence MRI of the brain was performed without the use of contrast. COMPARISON STUDY: None. FINDINGS: There is no mass, hematoma, midline shift, or acute infarct. The paranasal sinuses are clear. The mastoid air cells are clear. The ventricles and sulci demonstrate mild age-related involutional changes. A few scattered punctate foci of T2 hyperintensity seen within the periventricular and subcortical white matter are nonspecific but suggestive of mild microvascular ischemic changes. The major vascular flow voids at the skull base are well- maintained. The globes and retrobulbar fat are intact. The optic nerves demonstrate a normal signal intensity. There is a 9 mm cystic focus near the left petrous apex/sphenoid sinus which could represent mucoid material within the left sphenoid sinus or a cholesterol cyst. This is best seen on axial image 9. IMPRESSION: 1. No acute infarct or intracranial hemorrhage. 2. Mild atrophy and presumed mild microvascular ischemic changes. 3. There is a 9 mm cystic focus near the left petrous apex/sphenoid sinus which could represent mucoid material within the left sphenoid sinus or a cholesterol cyst. This is of doubtful clinical significance. ACT 112: Negative or not required by law. Electronically signed by: Mayank Wheatley M.D. 09/08/2022 5:41 PM Code Status & VTE Plan Code Status full VTE Prophylaxis Plan VTE Prophylaxis will be ordered: Yes Supervising Physician Co-Signing Physician Notes Attending addendum: I have physically seen this patient, have supervised the medical residents activities, and agree with the H&P unless as otherwise noted. Assessment and Plan: Transient visual loss left eye- Referred to the emergency department for evaluation The patient will be admitted to telemetry for serial cardiac enzymes, serial EKG's, cardiac rhythm monitoring and a 2-D echocardiogram with Dopplers. CT scan head without contrast negative MRI brain without contrast negative Order CTA head and neck Pupillary exam negative for Sedrick Ed pupil/afferent nerve defect Photograph of fundus does not find Hollenhorst plaque or other acute signs of ischemia such as arterial or venous occlusion Aspirin 81 mg daily Neuro protocol Hypertension- For tonight, allow permissive hypertension Asthma- Is primarily exercise-induced, and does not require inhalers CKD- Creatinine 1.13 upon admission, close to baseline Follow serially Remaining orders and notations as noted Resident Activity Tracking Resident Involvement: Resident Care Provided Care Provided: Adult Hospital Medicine
[2022-09-09 00:05] LABS: C Reactive Protein < 0.50 mg/dl (0-0.5)
[2022-09-09] MEDS ORDERED: PHARMACIST DISCHARGE MED REC CONSULT PRN (00:22)
[2022-09-09] MEDS ORDERED: ONDANSETRON INJ 2 MG/ML 2 ML VIAL IV PRN (00:37)
[2022-09-09] MEDS ORDERED: ACETAMINOPHEN 325 MG TAB PO PRN (00:37)
[2022-09-09] MEDS ORDERED: POLYETHYLENE (MIRALAX) 17 GM PACK PO PRN (00:37)
[2022-09-09] MEDS ORDERED: ATORVASTATIN 40 MG TAB PO SCH (00:55)
--- NOTE | 2022-09-09 02:37 | Electrocardiogram Report ---
Test Reason : Blood Pressure : / mmHG Vent. Rate : 079 BPM Atrial Rate : 079 BPM P-R Int : 174 ms QRS Dur : 084 ms QT Int : 368 ms P-R-T Axes : 035 -11 045 degrees QTc Int : 421 ms Sinus rhythm with Premature atrial complexes Septal infarct , age undetermined Abnormal ECG When compared with ECG of 31-JAN-2021 12:59, Premature atrial complexes are now Present Septal infarct is now Present Confirmed by Segundo Thompson ([id number]) on 09/09/2022 2:37:17 AM Referred By: Confirmed By:Segundo Thompson
[2022-09-09] MEDS ORDERED: OPTIRAY 320 500ml IV ONE (06:02)
[2022-09-09 07:25] LABS: Basophils # (auto) 0.05 K/uL (0-0.2); Basophils % (auto) 1.1 %; Eosinophils # (auto) 0.11 K/uL (0-0.50); Eosinophils % (auto) 2.4 %; Hematocrit (blood only) 44.1 % (42.0-52.0); Hemoglobin 15.1 g/dl (14.0-18.0); Immature Granulocytes # (auto) 0.01 K/uL (0.01-0.20); Immature Granulocytes % (auto) 0.2 %; Lymphocytes # (auto) 1.26 K/uL (1.2-3.4); Lymphocytes % (auto) 27.5 %; Mean Corpuscular Hgb Conc 34.2 g/dL (32.0-36.0); Mean Corpuscular Volume 84.8 fL (80.0-100.0); Mean Platelet Volume 9.8 fL (9.4-12.4); Monocytes # (auto) 0.68 K/uL (0.11-0.59); Monocytes % (auto) 14.8 %; Neutrophils # (auto) 2.47 K/uL (1.40-6.50); Platelet Count 206 K/uL (130-400); RDW Coefficient of Variation 13.4 % (11.5-14.5); RDW Standard Deviation 42.1 fL (36.4-46.3); White Blood Count 4.58 K/ul (4.8-10.8)
--- NOTE | 2022-09-09 07:37 | CT Scan Report ---
CT ANGIOGRAPHY OF THE NECK WITH CONTRAST CLINICAL HISTORY: transient visual loss left eye COMPARISON STUDY: No previous studies for comparison. Technique: CT angiography of the carotid and vertebral arteries was obtained using Optiray and 3D rec onstruction on an independent workstation. NASCET criteria was utilized. Automated exposure control was utilized for the study. A dose lowering technique was utilized adhering to the principles of ALA RA. CT DOSE: 1415.36 mGy.cm Findings: Visualized portions of the lung apices are unremarkable. There is no cervical lymphadenopat hy. There is no acute cervical spine fracture. The left vertebral artery is dominant and patent. Ther e is no dissection within the major vessels of the neck. The bilateral common carotid and cervical in ternal carotid arteries are patent. There is mild plaque within the left carotid bifurcation. IMPRESSION: 1. No stenosis or dissection within the bilateral common carotid, cervical internal carotid or verteb ral arteries. 2. Mild plaque within the left carotid bifurcation. ACT 112: Negative or not required by law. Electronically signed by: Lencho Raymond M.D. 09/09/2022 7:35 AM
--- NOTE | 2022-09-09 07:49 | CT Scan Report ---
CT angio head wo/w CLINICAL HISTORY: transient visual loss left eye COMPARISON STUDY: Head CT and MRI of the brain September 08, 2022. TECHNIQUE: Unenhanced and arterial phase imaging of the head was performed. Intravenous injection of 111 cc of Optiray 320 IV was uneventful. Sagittal and coronal reconstructions were viewed as well as maximal intensity projections on an independent 3-D workstation. Automated exposure control was utili EDITD for the study. A dose lowering technique was utilized adhering to the principles of ALARA. FINDINGS: No acute intracranial hemorrhage, midline shift or mass effect is present. Ventricular syst em is normal. Basal cisterns are patent. There are no extra-axial collections. There are no findings to suggest acute dural sinus thrombosis or acute territorial infarct. The bilateral M1, M2, A1 and A2 segments are patent. There is no central vessel occlusion. There is no intracranial aneurysm. The po sterior circulation is intact. persistence of the left posterior cerebral artery. IMPRESSION: 1. No acute intracranial findings. 2. Unremarkable CTA of the head. ACT 112: Negative or not required by law. Electronically signed by: Lencho Raymond M.D. 09/09/2022 7:48 AM
[2022-09-09 07:54] LABS: BUN Creatinine Ratio 13.3 (10-20); Calcium 8.6 mg/dl (8.5-10.1); Chol HDL Ratio 3.1 (0-5); Creatinine Clr Calc Pharmacy 88.8 ml/min; Est GFR (African American) 87.1 ml/min; Est GFR (Non-African American) 75.2 ml/min
[2022-09-09 08:31] LABS: Estimated Average Glucose 108 mg/dl; Hemoglobin A1C 5.4 % (4.5-5.6)
[2022-09-09] MEDS ORDERED: LOSARTAN POTASSIUM 50 MG TAB PO SCH (09:00)
[2022-09-09] MEDS ORDERED: VERAPAMIL HCL 240 MG TABCR PO SCH (09:00)
[2022-09-09] MEDS ORDERED: ASPIRIN 81 MG ECTAB PO SCH ×2 (09:00→21:00)
[2022-09-09] MEDS ORDERED: STROKE PATIENT DISCHARGE STA (10:54)
--- NOTE | 2022-09-09 11:42 | Discharge Summary ---
Date of Service September 09, 2022 Admission HPI Per Admitting Provider 62 y/o male w/ PMHx of HTN, ocular migraines (per patient) w/ aura, and exercise-induced asthma who presents via EMS w/ transient vision loss in left eye x 1 minute (started as opague/beige, then darker from saunders to black, 99% vision loss. no hx similar). Was walking down steps at home. Initially, thought was beginning of ocular migraine. BP 213/115->->139/96. Mild left periorbital headache. No cp, sob, n/v, or extremity weakness. For past 2 weeks, had sensation (feeling more anxious/stressed) of high BP, 165/98. No yi, blurry vision, n/v, cp, sob, paresthesias, jaw numbness. Denies facial droop, speech deficit, confusion, extremity weakness. States passed bedside swallow eval.. Had outpatient implantable event monitor w/ PACs and PVCs, no afib. Cigars 1x/month consistently in last 10 years. No cigarette use. rare etoh. No hx mi, stroke, VTE. No family hx migraines. Losartan 25mg was increased to 50mg a year ago. Verapamil 249mg chronically. Last used sildenafil a month. Mild malaise. Mild bilat scientologist area tightness/YI since coming to ED. No ttp at temples. Works as manager of construction. Walks 1.5 mile daily. Lost 50 lbs in past 2 years intentionally via diet/exercise. Has hx of ocular migraines w/ aura. ED course: labetalol 10mg IV x2. ASA 324. losartan 50mg PO. ED physician spoke w/ ophthalmology Dr. Phillips who recommended stroke-type workup. mild leukopenia. cbc stable. coags wnl. Cr 1.13, baseline 1.0. ecg reviewed, no ischemic changes. Principal Diagnosis Amaurosis Fugax Discharge Exam The patient is awake, alert and oriented 3, well developed and well nourished, normocephalic and atraumatic, lying in bed and in no acute distress. HEENT--PERRL, EOMI, mucous membranes and oropharynx mildly dry Neck--supple. No JVD. No bruits. Thyroid normal, trachea midline, no adenopathy. Heart--normal S1 and S2. No murmurs, rubs or gallops. Lungs--clear bilaterally, no respiratory distress, no accessory muscle use. Abdomen--normal bowel sounds and soft. Mild epigastric and left sided abdominal pain Extremities--no cyanosis or clubbing. No edema. Dermatologic--normal skin turgor, normal color, no abnormal lymph nodes, no rash. Neurologic--cranial nerves II through XII grossly intact. Rheumatologic--normal range of motion. Psychiatric--normal affect. Discharge Data Allergies Allergy/AdvReac Type Severity Reaction Status Date / Time amoxicillin Allergy Severe Hives Verified 09/08/22 17:53 Penicillins Allergy Severe THROAT Verified 09/08/22 17:53 TIGHTENED, ITCHY HIVES FABRICIO Inhibitors AdvReac Intermediate Cough Verified 09/08/22 17:53 Consultations 09/08/22 19:05 ED Decision to Admit Stat 09/09/22 00:35 Consult Ophthalmology Routine Ordered Studies 09/08/22 13:50 CT head/brain wo con Stat 09/08/22 16:20 MR brain wo con Stat 09/09/22 00:22 CT angio head wo/w Routine 09/09/22 00:22 CT angio neck with con Routine Hospital Course (1) Transient visual loss of left eye: 62 y/o male w/ PMHx of HTN, ocular migraines (per patient) w/ aura, and exercise-induced asthma who presents via EMS w/ transient vision loss in left eye x 1 minute -Most likely amaurosis fugax. -Said his vision was back to normal on my examination this morning - ESR was normal, CTA head and neck shows only mild plaque. MRI brain was wnl -Patient admits to a history of PVC's captured on 30 day event monitor, no Afib -Will start him on ASA 81mg daily and Atorvastsin 40mg daily -To follow up with his PCP (2) Hypertension: Continue chronic regimen of losartan 50mg and verapamil 240mg (also for palpitations 2/2 pacs/pvcs). (3) Asthma: Mild, exercise-induced. Not on inhalers. (4) Erectile dysfunction: Hold home prn sildenafil. Last used 1 month ago. (5) CKD (chronic kidney disease): Stage 2. Follow BMP. Plan d/c home Total Time Total Time Spent Total Time Spent (In Minutes): 35 Discharge Plan Discharge Items Patient Disposition: Home - Self-Care Reason For Visit: TRANSIENT VISION LOSS OF LEFT EYE Discharge Diagnosis: amaurosis fugax Condition on Discharge: Good Activity: Resume your previous activity Non-emergency contact: Primary Care Provider Call non-emergency contact if: you have any medication questions Follow-up/Referrals: Carrie Stephens MD [Primary Care Provider] - 09/18/22 1:30 pm Diet: Regular Addtl Attending Provider Instructions: Please make appointment to follow up with your PCP as soon as possible Pending Studies at Discharge: No Stand-Alone Forms: [facility], Smoking Cessation Medications and DC Order Prescriptions: New atorvastatin 40 mg tablet 40 mg PO DAILY Qty: 30 0RF aspirin 81 mg capsule 81 mg PO DAILY Qty: 30 0RF Continued sildenafil (pulm.hypertension) 20 mg tablet See Rx Instructions PO DAILY PRN (Reason: sexual activity) Qty: 30 0RF Rx Instructions: 2 to 3 tabs PO daily PRN; losartan 50 mg tablet 50 mg PO QAM verapamil 240 mg capsule,ext rel. pellets 24 hr 240 mg PO QAM Centrum Silver Men 300-600-300 mcg Tablet 1 tab PO QAM Discharge Orders: Discharge Order (Routine); Ordered 09/09/22 Ordered By: Jah Atkins Admission Data Admit Date/Time: 09/08/22 21:55 Attending Provider: Jah Atkins Admit Provider: Apolinar Velasquez Primary Care Provider: Carrie Stephens Other Providers: Bang Celestin ; Roger Phillips Other Interventions: Discharge Summary Assessment (RN) Last Done: 09/09/22 11:33 Coding Level of Care Code 56384 INP/OBS DISCH >30 MIN Diagnoses Transient visual loss of left eye H53.122 Hypertension I10 Asthma J45.909 Erectile dysfunction N52.9 CKD (chronic kidney disease) N18.9 Time Spent (min) 35
--- NOTE | 2022-09-09 12:17 | XCELERA ---
[id number]
--- NOTE | 2022-09-09 23:44 | Billing Data ---
Date of Service September 09, 2022 Coding Level of Care Code 74150 INT INP/OBS CARE
== END 2022-09-09 12:30 | disposition home or self-care (01) ==
LOC: 2N 13:33 → ED 13:33 → SUATTDRO 21:55 → 2N 23:52